=== PATIENT | female | born 1980 | race Caucasian/White ===

== ENCOUNTER 2018-11-23 21:37 | Emergency (ER) | payer BC ==
[~2018-11-23] VITALS: Ht 160 cm; Wt 97.5 kg
[2018-11-23] MEDS ORDERED: METF850T PO (21:46)
[2018-11-23] MEDS ORDERED: KETOROLAC TROMETHAMINE 15 MG INJ IV ONE (22:30)
[2018-11-23] MEDS ORDERED: KETOROLAC TROMETHAMINE 15 MG INJ ONE (22:49)
--- NOTE | 2018-11-23 22:52 | NUR ---
pt appears anxious and notes recent stress. notes mid chest pleuritic pain and mild sob. a/e equal clear and adequate/ color good. iv toradol given via heplock
[2018-11-23 22:53] LABS: BASOPHILS % (AUTO) 0.4 % (0.0-2.0); EOSINOPHILS # (AUTO) 0.1 K/uL (0.0-0.7); EOSINOPHILS % (AUTO) 1.7 % (0.0-7.0); HEMATOCRIT 37.5 % (31.2-41.9); HEMOGLOBIN 12.3 g/dL (10.9-14.3); LYMPHOCYTES # (AUTO) 2.3 K/uL (20.0-40.0); LYMPHOCYTES % (AUTO) 28.2 % (20.5-51.5); MEAN CORPUSCULAR HEMOGLOBIN 24.9 uug (24.7-32.8); MEAN CORPUSCULAR HGB CONC 33 g/dL (32.3-35.6); MONOCYTES # (AUTO) 0.5 K/uL (2.0-10.0); MONOCYTES % (AUTO) 5.7 % (0.0-11.0); NEUTROPHILS # (AUTO) 5.3 K/uL (1.8-8.9); PLATELET COUNT (AUTO) 240 K/uL (179-408); RED BLOOD CELL COUNT(AUTO) 4.93 MIL/uL (3.63-4.92); WHITE BLOOD COUNT (AUTO) 8.3 K/uL (3.8-11.8)
[2018-11-23 23:05] LABS: CREATININE 0.7 mg/dL (0.6-1.3); POTASSIUM 4.1 mmol/L (3.5-5.1)
[2018-11-23 23:18] LABS: BILIRUBIN,DIRECT 0.1 mg/dL (0.0-0.2); BILIRUBIN,TOTAL 0.2 mg/dL (0.2-1.0)
[2018-11-24 00:32] VITALS: BP 132/66
--- NOTE | 2018-11-24 00:33 | NUR ---
pt notes pain relieved post iv med. color good. ambulating easily. iv dc no swelling cath intact no bleeding. advised rest and fu pmd in 2 days and return if symptoms increase change or persist
== END 2018-11-24 00:35 | disposition home or self-care (01) ==
LOC: ER 21:39
DX: R07.89 Other chest pain (principal); R09.1 Pleurisy; R20.2 Paresthesia of skin; E11.9 Type 2 diabetes mellitus without complications; Z79.899 Other long term (current) drug therapy
CPT/HCPCS: 36415 ×2; 71045; 80048; 80076; 83880; 84484; 84702; 85025; 85379; 85730; 93005; 96374; 99284; J1885; 70030-TC; A4663